=== PATIENT | male | born 1945 | race Caucasian/White ===

== ENCOUNTER → 2017-11-27 | Outpatient (CLI) | payer MEDICARE, BC | LOC: COL.VAS 13:04 | DX: R06.02 Shortness of breath (principal) | CPT/HCPCS: C8924; Q9957 ==

== ENCOUNTER 2021-11-29 14:14 | Inpatient (IN) | payer MEDICARE, BC ==
[~2021-11-29] VITALS: Ht 177.8 cm; Wt 119.5 kg
[2021-11-29 16:00] VITALS: BP 119/47; PULSE 76; TEMP 98.7
--- NOTE | 2021-11-29 17:00 | NUR ---
PT ARRIVES TO ROOM WITH EMS @ 1525. PT IS TRANSFERRED TO BED WITH A SLIDE BOARD ET 4 ASSIST. PT'S RIGHT LOWER LEG IS WRAPPED IN GAUZE, FOOT ET LEG ARE EDEMATOUS WITH ERYTHMA, WARM TO TOUCH. PT IS A&O X3, DENIES PAIN @ REST BUT STATES THAT PAIN IS SEVERE WHEN HIS RIGHT LEG IS MOVED. PT STATES THAT HE WOULD LIKE HIS TO BE NOTIFIED OF ADMISSION. PT'S IS CALLED WITH NO ANSWER. PT STATES THAT HE WILL TRY TO CALL WHEN HIS PHONE IS CHARGED SOME. GAUZE DRESSING TO RIGHT LEG HAS BEEN REMOVED ET REPLACED, SMALL ULCERS ET WEEPING ARE ASSESSED. INT IV TO PT'S RIGHT WRIST WAS INSERTED @ [facility], FLUSHES EASILY. PT USES URINAL, GOWN IS CHANGED ET TELEMETRY HAS BEEN PLACED. RADIOLOGY HAS BEEN HERE TO TAKE PT FOR PARACENTESIS.
--- NOTE | 2021-11-29 18:30 | NUR ---
PT HAS ARRIVED BACK TO ROOM FROM PROCEDURE, RESTING QUIETLY IN BED. BLOOD PRESSURES ARE DECREASED. PT STATES THAT THEY WERE ABLE TO TAKE 7L OFF. BANDAID CDI TO LEFT ABDOMEN. Roland GASPAR APRN NOTIFIED, LASIX IV PLACED ON HOLD ET NOT GIVEN. VANCO IV STARTED BUT ALBUMIN HAS NOT ARRIVED FROM PHARMACY. A 2ND IV IS PLACED IN PT'S LEFT FA TO RUN ALBUMIN THROUGH WHEN IT BECOMES AVAILABLE. PT HAS ORDERED DINNER, DENIES NEEDS @ THIS TIME. CALL LIGHT WITHIN REACH.
[2021-11-29 18:59] LABS: PERITONEAL -POLYMORPHONUCLEAR 23.8 % (0-25)
--- NOTE | 2021-11-29 19:16 | NUR ---
PT VITAL SIGNS WERE COMPLETED @ 1800 WHEN PT RETURNED FROM PARACENTESIS, WERE NOT DOCUMENTED BY HUMAN RESOURCES TEAM MEMBER WHEN THEY WERE TAKEN.
[2021-11-29 19:20] VITALS: BP 117/43; PULSE 74; TEMP 98
[2021-11-29] MEDS ORDERED: K-DUR20 MEQ PO (20:29)
[2021-11-29] MEDS ORDERED: PRILOTC PO (20:30)
[2021-11-29] MEDS ORDERED: LASIX 20MG TABL20 MG PO (20:32)
[2021-11-29] MEDS ORDERED: PRINIVIL5 MG PO (20:33)
[2021-11-29] MEDS ORDERED: CVS SPECTRAVIT1 EA15 PO (20:34)
[2021-11-29] MEDS ORDERED: ASPIRIN 81M81 MG/TA2 PO (20:35)
[2021-11-29 23:09] VITALS: BP 123/54; PULSE 79; TEMP 99
--- NOTE | 2021-11-29 23:54 | NUR ---
PATIENT ALERT AND ORIENTED. MED RX COMPLETED, ALLERGIES AND PHARMACY UP TO DATE. R LEG CELLULITIS IS SIGNIFICANT, WRAPPED WITH ABDs AND GAUZE ROLLS. DOPPLAR US + FOR PEDAL PULSES. MEDS ADMINISTERED PER EMAR. DENIES PAIN WHEN LAYING IN BED.
[2021-11-30] VITALS (7 sets, daily range): BP systolic 105–141; BP diastolic 42–50; PULSE 64–76; TEMP 97.6–99.2
[2021-11-30 03:35] LABS: HEMOGLOBIN 12.8 g/dl (13.5-18.0); MEAN CELL VOLUME 94 fl (80.0-100.0); MEAN CORPUSCULAR HEMOGLOBIN 34 pg (27-31); MEAN CORPUSCULAR HGB CONC 36 g/dl (33.0-37.0); MEAN PLATELET VOLUME 10.1 fl (7.4-10.4); PLATELET COUNT 231 K/mm3 (130-400); RED BLOOD COUNT 3.77 M/mm3 (4.20-5.60); REDCELL DISTRIBUTION WIDTH-CV 15.4 % (11.5-14.5)
[2021-11-30 03:43] LABS: INR 1.4 (0.8-3.0); PROTHROMBIN TIME 15.4 SECONDS (9.7-12.8)
[2021-11-30 03:44] LABS: HEMATOCRIT 35.4 % (42.0-52.0)
[2021-11-30 03:53] LABS: ALBUMIN 2.7 gm/dL (3.4-4.8); CALCIUM 9.1 mg/dL (8.4-10.2); CREATININE, serum 1.03 mg/dL (0.72-1.25); MAGNESIUM 1.7 mg/dL (1.6-2.6); PHOSPHOROUS 2.9 mg/dL (2.3-4.7); POTASSIUM 3.5 mmol/L (3.5-4.5); TOTAL PROTEIN 6.3 gm/dL (6.2-8.1)
[2021-11-30 03:59] LABS: TROPONIN-I 0.011 ng/mL (0.00-0.033)
[2021-11-30 04:18] LABS: BAND 2 % (0-10); EOSINOPHIL 3 % (0-4); LYMPHOCYTE 11 % (20.0-51.0); NEUTROPHILS 66 % (42.0-75.2)
[2021-11-30 04:19] LABS: PLATELET ESTIMATE NORMAL (NORMAL)
[2021-11-30 04:22] LABS: TARGET CELLS 1+
[2021-11-30 04:23] LABS: TEAR DROP CELLS 1+
--- NOTE | 2021-11-30 09:50 | NUR ---
sand worker met with patient to discuss discharge plan. Patient currently lives at home with his Sindy ([phone]) in [place]. Patient reports that he is independent with his ADL's. When asked if he used any DME to assist with mobility he states " i have to have someone help me" but denied any use of DME. Patient has no home oxygen needs. PCP is Dr. Jarrett and he uilizes [facility] in [place] for perscriptions with no cost difficulty. Patient states that he does have a DPO[employer] listing his as his agent but that it is at home. Patient is planning on returning home once medically ready. Discharge plan: Home; Pending PT/OT ning
--- NOTE | 2021-11-30 10:49 | NUR ---
DRESSING CHANGE COMPLETE, ABD,GAUZE ROLL, ANUPAM WRAP. TOLERATING WELL. VSS PT TO RECLINER AFTER USING BR. EATING BREAKFAST AT THIS TIME.
--- NOTE | 2021-11-30 13:53 | NUR ---
Hydraulic Repairer visited with patient. Nothing else needed at this time.
--- NOTE | 2021-11-30 22:51 | NUR ---
PATIENT ALERT AND ORIENTED. RLE WRAPPED WITH ANUPAM WRAP. DENIES PAIN LONG HE ISNT MOVING. USING URINAL WITHOUT ISSUE. MEDS ADMINISTERED PER EMAR. TELE REPORTING SINUS RHYTHM. DENIES ANY OTHER NEEDS.
[2021-12-01 03:23] VITALS: BP 107/54; PULSE 53; TEMP 98.7
[2021-12-01 07:08] VITALS: BP 105/44; PULSE 77; TEMP 98.6
[2021-12-01 07:20] LABS: CALCIUM 8.3 mg/dL (8.4-10.2); CREATININE, serum 0.96 mg/dL (0.72-1.25); MAGNESIUM 1.8 mg/dL (1.6-2.6); POTASSIUM 3.8 mmol/L (3.5-4.5)
--- NOTE | 2021-12-01 10:15 | NUR ---
PT RESTING IN BED. SBAX1 TO BR. DRESSING TO RLE CDI WITH ANUPAM WRAP OVER WOUNDS. PT IS A/O X3. PT FOLLOWS WITH [facility]HA'S WOUND CARE NURSE AND IS AWARE OF NEED TO FOLLOW UP POST HOSPITAL STAY.
[2021-12-01 11:16] VITALS: BP 121/57; PULSE 65; TEMP 98.8
[2021-12-01 15:10] VITALS: BP 113/51; PULSE 59; TEMP 98.5
[2021-12-01 19:00] VITALS: BP 103/49; PULSE 66; TEMP 98.7
--- NOTE | 2021-12-01 21:00 | NUR ---
Patient is resgint in bed, alert and oriented x 4, VSS. Denies pain, nausea or vomiting. Telemetry in place, NSR. Vancomycin on hold after high lab result 24.62. Assesment completed, meds provided. no other needs at this time. Call light within reach.
[2021-12-01 23:12] VITALS: BP 104/48; PULSE 68; TEMP 99.8
[2021-12-02 03:10] VITALS: BP 111/52; PULSE 79; TEMP 99.1
--- NOTE | 2021-12-02 05:13 | NUR ---
Vancomycin trough drawn appropriately and resulted at 24.62 on 12/02; scheduled dose was held. Random level this am resulted at 17.35 mcg/ml; will change vancomycin regimen from 1500 mg q12h to q24h to target a goal trough of 15-20 mcg/ml.
--- NOTE | 2021-12-02 07:07 | NUR ---
Patient has a calm night. He did not receivded the vanco dose of yesterday eveneing due to high levels in blood. Pharmacy changed it from every 12 hrs to 24. Right now receiving morning dose. Report will be given to day RN.
[2021-12-02 07:37] VITALS: BP 100/41; PULSE 62; TEMP 98.9
[2021-12-02] MEDS ORDERED: TOPROL XL 25MG25 MG PO (09:30)
[2021-12-02] MEDS ORDERED: ALDACTONE 25MG25 M1 PO (09:30)
[2021-12-02] MEDS ORDERED: AMOXICILLIN 8751 TAB PO (09:53)
[2021-12-02] MEDS ORDERED: DOXYCYCLINE HY100 MG PO (09:53)
[2021-12-02] MEDS ORDERED: ACIDOPHILIS PO (09:54)
--- NOTE | 2021-12-02 10:57 | NUR ---
Patient sitting up in chair. Finishing breakfast. Hospitalist has rounded this am, plans for discharge this afternoon. Patient Iv to [facility] Dc. Int to [facility]. Patient denies pain. He denies shortness of breath. Right leg dressing intact. Swelling to ble. Patient did reports a loose stool this am. Vss, hospitalist made aware of blood pressure & verified okay to give am medications. Will monitor.
[2021-12-02 11:23] VITALS: BP 121/57; PULSE 65; TEMP 98.5
--- NOTE | 2021-12-02 12:57 | NUR ---
Patient sitting up in chair. On the phone, lunch ordered. Will monitor.
--- NOTE | 2021-12-02 13:43 | NUR ---
Patient up to the bathroom again with a loose stool. Sitting up in chair working on lunch tray. He will call ride for discharge.
--- NOTE | 2021-12-02 14:42 | NUR ---
Exceptional Student Education Teacher attended clinical rounds with the team and patient to discharge home today. MARSHAL met with patient to review discharge plan and IM. MARSHAL presented and reviewed IM with patient who verbalized understanding then provided his signature. MARSHAL placed form in chart and provided copy to patient. MARSHAL discussed Home Health services with patient who declined, but expressed interest in outpatient PT at [facility]. Patient also in need of a front wheeled walker and would like it ordered from [facility], as he has used [facility] previously for other equipment. MARSHAL contacted [facility] and faxed order for FWW, then confirmed it was received. Patient advised he will pick it up today on his way home. MARSHAL also contacted [facility] and faxed referral. MARSHAL scheduled first appointment for 12/04/21 at 1000 and provided appointment to aboriginal community council member. MARSHAL contacted patient's , Sindy and reviewed the above information. Sindy is in agreement with discharge plan. Discharge Plan: Home with outpatient PT
--- NOTE | 2021-12-02 16:30 | NUR ---
Patient ready for discharge. We reviewed all education. Scripts send to [facility] pharmacy, patient aware he will need to cook pickled meat. We went over detailed med list with last dose taken and when next dose is due. I did cleanse and re wrap patients right leg. Prior dressing noted to be soiled due to weeping. I gave bed bath & applied lotion to skin. Int Dc. I gave patient a CHF note book and disussed weight himself daily & heart healthy diet. Patient aware of follow up appt & put them in his telephone. Patient wheeled out with all belongings his family friend taking him home. Patient thankful for cares given, and denies questions or concerns.
[2021-12-09] MEDS ORDERED: K-DUR20 MEQ PO (07:58)
[2021-12-09] MEDS ORDERED: TOPROL XL 25MG25 MG PO (08:00)
[2021-12-09] MEDS ORDERED: ZESTRIL 5MG5 MG PO (08:01)
[2021-12-09] MEDS ORDERED: ALDACTONE 25MG25 M1 PO (08:02)
[2021-12-09] MEDS ORDERED: PROBIOTIC ACID1 EAC3 PO (08:04)
== END 2021-12-02 17:04 | disposition home health service (06) | DRG 291 ==
LOC: SURG 14:14
PROVIDERS: ADMIT Internal Medicine
PROC: 0W9G3ZZ Drainage of Peritoneal Cavity, Percutaneous Approach (ICD-10-PCS; principal; 2021-11-29)
DX: I11.0 Hypertensive heart disease with heart failure (principal); I50.33 Acute on chronic diastolic (congestive) heart failure; L03.115 Cellulitis of right lower limb; R18.8 Other ascites; K21.9 Gastro-esophageal reflux disease without esophagitis; E78.5 Hyperlipidemia, unspecified; I27.20 Pulmonary hypertension, unspecified; K76.0 Fatty (change of) liver, not elsewhere classified; I73.9 Peripheral vascular disease, unspecified; I87.2 Venous insufficiency (chronic) (peripheral); I89.0 Lymphedema, not elsewhere classified; Z79.82 Long term (current) use of aspirin
CPT/HCPCS: 99223-AI; 99232-AI; 99239; J0696; J1650; J1940; J3370; J3475; J7050; P9047

== ENCOUNTER 2021-12-06 14:53 | Emergency (ER) | payer MEDICARE, BC ==
[~2021-12-06] VITALS: Ht 177.8 cm; Wt 114.5 kg
[~2021-12-06 14:53] MED LIST: ACIDOPHILIS PO; ALDACTONE 25MG25 M1 PO; AMOXICILLIN 8751 TAB PO; ASPIRIN 81M81 MG/TA2 PO; CVS SPECTRAVIT1 EA15 PO; DOXYCYCLINE HY100 MG PO; K-DUR20 MEQ PO; LASIX 20MG TABL20 MG PO; PRILOTC PO; PRINIVIL5 MG PO; TOPROL XL 25MG25 MG PO
[2021-12-06 15:02] VITALS: TEMP 98.3
[2021-12-06 15:15] LABS: COLLECTION METHOD CLEAN CATCH
[2021-12-06 15:32] LABS: MUCOUS Present (NOT PRESENT); PH 5 (5-8); SQUAMOUS EPITHELIAL None Seen /hpf (0-10); URINE APPEARANCE Clear (CLEAR/HAZY); URINE BACTERIA None Seen /hpf (NONE SEEN); URINE BILIRUBIN Negative (NEGATIVE); URINE BLOOD Negative (NEGATIVE); URINE COLOR Straw (YELLOW); URINE GLUCOSE Negative (NEGATIVE); URINE KETONE Negative (NEGATIVE); URINE LEUKOCYTE ESTERASE Negative (NEGATIVE); URINE NITRATE Negative (NEGATIVE); URINE PROTEIN(semi-quant) Negative (NEGATIVE); URINE RBC None Seen /hpf (0-2); URINE UROBILINOGEN Negative (NEGATIVE)
[2021-12-06 15:36] LABS: INR 1.2 (0.8-3.0); PROTHROMBIN TIME 13.8 SECONDS (9.7-12.8)
[2021-12-06 15:49] LABS: ALBUMIN 2.5 gm/dL (3.4-4.8); BILIRUBIN,TOTAL 2.2 mg/dL (0.2-1.2); CALCIUM 9.2 mg/dL (8.4-10.2); CREATININE, serum 1.14 mg/dL (0.72-1.25); POTASSIUM 4.5 mmol/L (3.5-4.5); TOTAL PROTEIN 6.5 gm/dL (6.2-8.1)
[2021-12-06 16:15] LABS: HEMOGLOBIN 11.9 g/dl (13.5-18.0); MEAN CELL VOLUME 94 fl (80.0-100.0); MEAN CORPUSCULAR HEMOGLOBIN 34 pg (27-31); MEAN CORPUSCULAR HGB CONC 36 g/dl (33.0-37.0); MEAN PLATELET VOLUME 9.9 fl (7.4-10.4); PLATELET COUNT 283 K/mm3 (130-400); RED BLOOD COUNT 3.51 M/mm3 (4.20-5.60); REDCELL DISTRIBUTION WIDTH-CV 15.3 % (11.5-14.5)
[2021-12-06 16:18] LABS: HEMATOCRIT 32.9 % (42.0-52.0)
[2021-12-06 16:41] VITALS: BP 108/63; PULSE 63
[2021-12-06 17:25] LABS: ANISOCYTOSIS 1+; BAND 5 % (0-10); BASOPHIL 1 % (0-2); EOSINOPHIL 6 % (0-4); LYMPHOCYTE 12 % (20.0-51.0); NEUTROPHILS 61 % (42.0-75.2); PLATELET ESTIMATE NORMAL (NORMAL)
[2021-12-06 17:26] LABS: TARGET CELLS 1+
[2021-12-09] MEDS ORDERED: K-DUR20 MEQ PO (07:58)
[2021-12-09] MEDS ORDERED: TOPROL XL 25MG25 MG PO (08:00)
[2021-12-09] MEDS ORDERED: ZESTRIL 5MG5 MG PO (08:01)
[2021-12-09] MEDS ORDERED: ALDACTONE 25MG25 M1 PO (08:02)
[2021-12-09] MEDS ORDERED: PROBIOTIC ACID1 EAC3 PO (08:04)
== END 2021-12-06 16:43 | disposition home or self-care (01) ==
LOC: COL.ER 14:53
PROVIDERS: Emergency Medicine
DX: K74.60 Unspecified cirrhosis of liver (principal); R14.0 Abdominal distension (gaseous); K76.6 Portal hypertension

== ENCOUNTER → 2021-12-09 | Outpatient (CLI) | payer MEDICARE, BC ==
[~2021-12-09] VITALS: Ht 177.8 cm; Wt 118.2 kg
[~2021-12-09] MED LIST changes: +PROBIOTIC ACID1 EAC3 PO; +ZESTRIL 5MG5 MG PO
[2021-12-09 08:07] VITALS: BP 118/60; PULSE 65; TEMP 97.9
[2021-12-09 09:20] VITALS: BP 99/55; PULSE 61
== END ==
LOC: COL.RAD 07:28
DX: R18.8 Other ascites (principal)
CPT/HCPCS: 19804